=== PATIENT | male | born 1965 | race Two or more races ===

== ENCOUNTER 2020-09-16 11:53 | Emergency (ER) | payer MEDICAID, OTHER ==
[~2020-09-16] VITALS: Ht 170.2 cm; Wt 90.7 kg
[2020-09-16] MEDS ORDERED: SODIUM CHLORIDE 0.9% 1,000 ML IV ONE ×2 (12:00→14:30)
[2020-09-16 12:43] LABS: Albumin 4.2 g/dL (3.4-5.0); Anion Gap 11 (5-15); Blood Alcohol < 3.0 mg/dL (0-5); Blood Urea Nitrogen 7 mg/dL (7-18); Calcium 8.9 mg/dL (8.5-10.1); Carbon Dioxide 27 mmol/L (21-32); Chloride 95 mmol/L (98-107); Glucose 202 mg/dL (74-106); Potassium 3.7 mmol/L (3.5-5.1); Sodium 133 mmol/L (136-145)
[2020-09-16 12:46] LABS: Alanine Aminotransferase 87 U/L (16-61); Alkaline Phosphatase 123 U/L (45-117); Aspartate Aminotransferase 89 U/L (15-37); BUN/Creatinine Ratio 7.5; GFR African American 109 mL/min; GFR Non-African American 90 mL/min; Total Protein 7.7 g/dL (6.4-8.2)
[2020-09-16 12:56] LABS: Basophils # (auto) 0 10 ^3/uL (0-0.2); Basophils % (auto) 0.3 % (0.0-2.0); Eosinophils # (auto) 0 10 ^3/uL (0-0.8); Hematocrit 47.6 % (41.0-53.0); Hemoglobin 16.9 g/dL (13.5-17.5); Lymphocytes # (auto) 0.8 10 ^3/uL (0.4-5.4); Lymphocytes % (auto) 11.5 % (10.0-50.0); Mean Corpuscular Hemoglobin 32.9 pg (28.0-32.0); Mean Corpuscular Hgb Conc. 35.4 g/dL (32.0-36.0); Monocytes # (auto) 0.3 10 ^3/uL (0-1.3); Monocytes % (auto) 4.4 % (0.0-12.0); Neutrophils # (auto) 5.6 10 ^3/uL (1.6-8.6); Neutrophils % (auto) 83.8 % (37.0-80.0); Nucleated Red Blood Cells % 0.2 %; Red Blood Cells 5.12 10^6/uL (4.5-5.90); Red Cell Distribution Width 14.4 % (11.8-14.3); White Blood Cell 6.7 10^3/uL (4.4-10.8)
[2020-09-16 13:40] LABS: Urine WBC None Seen /hpf (0 - 3)
[2020-09-16 13:53] LABS: Urine Bacteria NONE SEEN /hpf (None Seen); Urine Blood Negative /uL (Negative); Urine Hyaline Cast MOD /lpf (0 - 2); Urine Mucus FEW (None Seen); Urine Specific Gravity 1.017 (1.001-1.035)
[2020-09-16 15:18] VITALS: BP 132/82
== END 2020-09-16 15:20 | disposition home or self-care (01) ==
LOC: ER 11:53 → EDBD 11:53 → ER 15:20
DX: E86.0 Dehydration (principal); E11.65 Type 2 diabetes mellitus with hyperglycemia; E78.5 Hyperlipidemia, unspecified; I10 Essential (primary) hypertension; F17.210 Nicotine dependence, cigarettes, uncomplicated; F10.10 Alcohol abuse, uncomplicated; Z86.73 Personal history of transient ischemic attack (TIA), and cerebral infarction without residual deficits
CPT/HCPCS: 36415; 80053; 80320; 81001; 85025; 93005; 96360; 96361; 99285; J7030

== ENCOUNTER 2024-12-18 17:52 | Emergency (ER) | payer BC, OTHER ==
[~2024-12-18] VITALS: Ht 172.7 cm; Wt 107.8 kg
--- NOTE | 2024-12-18 17:58 | ED.PDOC ---
HPI (NEURO) HPI Comments HPI: This is a 59 year of male presenting to the ED with chief complaint of dizziness. Patient reports that he had gotten home from work today and after taking a nap, he woke up with dizziness and associated generalized weakness, sudden sharp left chest pain, left arm/leg numbness, and sweats. Patient relays that when he went to sit down, his chest pain, numbness, and sweats resolved, however, his family was worried about the patient possibly having a stroke, calling 911. 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 Patient denies any SOB, headache, N/V, syncope, fall, injury, or facial droop. Per EMS, no focal neurological deficits appreciated on their exam. Initial Vitals BP: 156/73 HR: 68 RR: 15 O2 Sat: 98% Temp: 98.4F Past Medical history: CVA, HTN, HLD, DM Past Surgical history: Denies Medications: Amlodipine, Glipizide Social History: Denies smoking, ETOH, and drug use. Allergies: Penicillins HPI: Poor Historian. REVIEW OF SYSTEMS: CONSTITUTIONAL: Denies acute: fever, diaphoresis, chills, HEAD: Denies acute: headache, photophobia Eyes: Denies acute: Double vision, vision loss, eye pain, eye discharge. EARS: Denies acute: tinnitus, hearing loss, ear discharge, ear pain, THROAT: Denies acute: sore throat, swelling, difficulty swallowing , pain with s wallowing, change in voice. NECK: Denies acute: neck pain, neck swelling, stiff neck. HEART: Denies acute : palpitations, LUNGS: Denies acute: SOB, wheezing, cough, hemoptysis ABDOMEN: Denies acute: abdominal pain, Nausea, Vomiting, diarrhea, melena , hematemesis, hematochezia SKIN: Denies acute: rash, redness, lesions, itchiness. EXTREMITIES: Denies acute: calf pain, numbness, tingling, weakness, denies pain in extremity. Denies acute: Low back pain. Neuro: Denies acute: focal neurological deficit, motor or sensory focal neurological deficit, tremors, seizure like activity, confusion, change in mental status, loss of bowel or bladder function, cauda equina like symptoms. : Denies acute: dysuria, hematuria, flank pain, increase in urinary frequency. PSYCH: Denies acute: hallucination, suicidal ideation, homicidal ideation. PHYSICAL EXAM: General: ---no-----acute distress, awake and alert. Head: normocephalic, atraumatic. Neck: supple, trachea is midline, no swelling. Throat: Normal phonation. Eyes:, no erythema, no purulent discharge, no proptosis, no icterus. Heart: regular rate, regular rhythm, no significant murmur appreciated. Lungs: no apparent respiratory distress, Able to speak in full sentences. No wheezing, no rhonchi, no crackles. No stridors Clear to auscultation bilaterally. Abdomen: non tender to palpation, non distended, soft, no guarding, no rebound, + bowel sounds. Neuro: Awake, Alert, oriented to name, self, situation, follows commands GCS=15. Speech is normal. Skin: no petechia, no purpura, no cyanosis, non-pale, not jaundice. Lower extremities: --no - Pitting edema no deformity, no focal swelling, no calf TTP. Makes eye contact. moves all four extremities. Face: no apparent facial droop. Ambulating in the ED independently. No nuchal rigidity, Kernig's sign, Brudzinski's sign, no meningeal signs. ED COURSE: DISCLAIMER: This medical document was created using an electronic medical record system with voice recognition software and computerized dictation system. Although this document has been carefully reviewed, there might still be some phonetic and typographical errors. Occasional wrong-word or "sound-alike" substitutions may have occurred due to the inherent limitations of voice recognition software. These areas are purely typographical due to imperfections of the software programs and do not reflect any compromise in the patient's medical care. Please read the chart carefully and recognize, using context, where these substitutions have occurred. Time Seen by MD: 17:54 Reviewed Notes: Medications, Allergies Information Source: Patient, Emergency Med Personnel Mode of Arrival: EMS Was a procedure done? Was a procedure done?: No Differential Diagnosis (SZ) General Weakness: Other (Includes but not limited to thyroid disease, encephalopathy, electrolyte abnormality, sepsis, infection, intracranial pathology, drug adverse effects, arrhythmia, kidney insufficiency, ACS, CVA, malignancy, anemia) Headache: N/A (Rhabdomyolysis, heat exhaustion, ) X-Ray, Labs, Meds, VS Vital Signs Date Time Temp Pulse Resp B/P (MAP) Pulse Ox O2 Delivery O2 Flow Rate FiO2 12/18/24 21:30 97.9 76 18 149/70 (96) 96 97.9 12/18/24 21:20 Room Air* 0 21 12/18/24 18:04 98.4 68 15 156/73 (100) 98 98.4 Lab Test 12/18/24 19:49 12/18/24 19:15 12/18/24 18:30 Range/Units Urine Color Yellow Yellow Urine Clarity Clear Clear Urine pH 6.0 5.0-9.0 Urine Specific [place] 1.016 1.001-1.035 Urine Protein Negative Negative Urine Ketones Negative Negative Urine Blood Negative Negative /uL Urine Nitrite Negative Negative Urine Bilirubin Negative Negative Urine Urobilinogen Normal Negative mg/dL Urine Leukocyte Esterase Negative Negative /uL Urine RBC 1 0 - 3 /hpf Urine Microscopic WBC 1 0-3 /HPF Urine Squamous Epithelial Cells Few <5 /hpf Urine Bacteria None seen None Seen /hpf Urine Glucose Normal Normal mg/dL Troponin I High Sensitivity 6 7 </=54 ng/L White Blood Count 7.9 4.4-10.8 10^3/uL Red Blood Count 5.55 4.5-5.90 10^6/uL Hemoglobin 17.1 13.5-17.5 g/dL Hematocrit 49.9 41.0-53.0 % Mean Corpuscular Volume 89.9 80.0-100.0 fL Mean Corpuscular Hemoglobin 30.8 28.0-32.0 pg Mean Corpuscular Hemoglobin Concent 34.3 32.0-36.0 g/dL Red Cell Distribution Width 14.2 11.8-14.3 % Platelet Count 134 L 140-450 10^3/uL Mean Platelet Volume 9.5 6.9-10.8 fL Neutrophils (%) (Auto) 69.1 37.0-80.0 % Lymphocytes (%) (Auto) 22.4 10.0-50.0 % Monocytes (%) (Auto) 5.7 0.0-12.0 % Eosinophils (%) (Auto) 1.9 0.0-7.0 % Basophils (%) (Auto) 0.9 0.0-2.0 % Neutrophils # (Auto) 5.4 1.6-8.6 10 ^3/uL Lymphocytes # (Auto) 1.8 0.4-5.4 10 ^3/uL Monocytes # (Auto) 0.5 0-1.3 10 ^3/uL Eosinophils # (Auto) 0.2 0-0.8 10 ^3/uL Basophils # (Auto) 0.1 0-0.2 10 ^3/uL Nucleated Red Blood Cells 0.2 % Sodium Level 141 136-145 mmol/L Potassium Level 3.8 3.5-5.1 mmol/L Chloride Level 105 98-107 mmol/L Carbon Dioxide Level 28 20-31 mmol/L Anion Gap 8 5-15 Blood Urea Nitrogen 7 L 9-23 mg/dL Creatinine 0.82 0.700-1.30 mg/dL Glomerular Filtration Rate Calc 102 >90 mL/min BUN/Creatinine Ratio 8.5 L 10.0-20.0 Serum Glucose 135 H 74-106 mg/dL Lactic Acid Level 1.1 0.4-2.0 mmol/L Calcium Level 9.5 8.7-10.4 mg/dL Total Bilirubin 0.7 0.2-1.0 mg/dL Aspartate Amino Transferase (AST) 36 H <34 U/L Alanine Aminotransferase (ALT) 49 H 7-40 U/L Alkaline Phosphatase 131 H 46-116 U/L Creatine Kinase 74 46-171 U/L Total Protein 7.3 5.7-8.2 g/dL Albumin 4.9 H 3.2-4.8 g/dL Current Medications Medications (Trade) Dose Ordered Sig/Yehuda Route Start Time Stop Time Status Last Admin Sodium Chloride 1,000 ml @ 1,000 mls/hr Q1H ONCE IV 12/18/24 18:00 12/18/24 18:59 DC 12/18/24 20:30 Time of 1ST Reevaluation: 18:54 Reevaluation 1ST: Unchanged Time of 2ND Reevaluation: 20:59 Reevaluation 2ND: Improved Patient Education/Counseling: Diagnosis, Treatment Family Education/Counseling: No Family Present Comments Patient presented with the above HPI.---heat exhaustion/dizziness---workup was initiated. patient was found with the above mentioned diagnosis. the following medications were ordered: please refer to order lists of meds and tests obtained by myself Dr. Cho. Patient ED course and VS have been stabilized. Patient has been reassessed in the ED and remained in a stable condition. Pertinent incidental findings were discussed with the patient and/or family. Patient/family voices understanding and is agreeable with plan. Patient has been observed in the ED adequate length of time to insure improvement/stability. Escalation of care considered: Consideration of escalation to observation or admission Symptoms have resolved after simple fluid hydration. Patient is back to his baseline. His family is with him. Workup has been unremarkable. Patient was DISCHARGED home in a stable condition. All the reports of any imaging studies that were ordered by myself were reviewed by myself. Departure 1 Departure Time of Disposition: 20:56 Impression: Primary Impression: Heat exhaustion Disposition: 01 HOME / SELF CARE / HOMELESS Condition: Stable Additional Instructions: Additional instructions: You MUST follow-up with your primary care/family doctor in 1 to 2 days. If you are unable to see your primary care/family doctor, please return to our emergency room for re-assessment and re-evaluation in 1 to 2 days. Return to the emergency room here in our facility or to the nearest ER [facility] if your symptoms change or worsen. CONSULTATIONS: you MUST Follow-up for consultation as soon as possible with: -cardiology and neurology in 1-2 days. Please call for appointment. You MUST call the consultants office yourself to make an appointment. You may need to arrange that through your insurance and/or your primary/family doctor. If you are unable to see the mgmt consultant in 1 to 2 days, you must return to our emergency room (or any other ER of your choice) for re-assessment and re- evaluation. Adequate fluid hydration. Avoid excessive heat exposure. Discharged With: Self, Relative Critical Care Note Critical Care Time?: No I personally scribed for GORDON CHO DO ([email or web address]) on 12/18/24 at 17:58. Electronically submitted by Quoc Verduzco ([email or web address]). I personally scribed for GORDON CHO DO ([email or web address]) on 12/18/24 at 18:33. Electronically submitted by Quoc Verduzco ([email or web address]). GORDON CHO DO Dec 18, 2024 17:58
--- NOTE | 2024-12-18 18:45 | DVH ---
CHEST RADIOGRAPH Indication: dizzy, Technique: Single frontal view of the chest was obtained Comparison: None FINDINGS: Lines and Tubes: None Lungs: No focal consolidation. Pleura: No effusion. No pneumothorax. Cardiomediastinal contours: Unremarkable Bones: No acute osseous abnormality. IMPRESSION: 1. No acute cardiopulmonary disease. HS:Y
[2024-12-18 18:59] LABS: Basophils # (auto) 0.1 10 ^3/uL (0-0.2); Basophils % (auto) 0.9 % (0.0-2.0); Eosinophils # (auto) 0.2 10 ^3/uL (0-0.8); Eosinophils % (auto) 1.9 % (0.0-7.0); Hematocrit 49.9 % (41.0-53.0); Hemoglobin 17.1 g/dL (13.5-17.5); Lymphocytes # (auto) 1.8 10 ^3/uL (0.4-5.4); Lymphocytes % (auto) 22.4 % (10.0-50.0); Mean Corpuscular Hemoglobin 30.8 pg (28.0-32.0); Mean Corpuscular Hgb Conc. 34.3 g/dL (32.0-36.0); Mean Corpuscular Volume 89.9 fL (80.0-100.0); Monocytes # (auto) 0.5 10 ^3/uL (0-1.3); Monocytes % (auto) 5.7 % (0.0-12.0); Neutrophils # (auto) 5.4 10 ^3/uL (1.6-8.6); Neutrophils % (auto) 69.1 % (37.0-80.0); Nucleated Red Blood Cells % 0.2 %; Platelet Count (auto) 134 10^3/uL (140-450); Red Blood Cells 5.55 10^6/uL (4.5-5.90); Red Cell Distribution Width 14.2 % (11.8-14.3); White Blood Cell 7.9 10^3/uL (4.4-10.8)
[2024-12-18 19:09] LABS: Calcium 9.5 mg/dL (8.7-10.4); Carbon Dioxide 28 mmol/L (20-31); Chloride 105 mmol/L (98-107)
[2024-12-18 19:10] LABS: Anion Gap 8 (5-15); BUN/Creatinine Ratio 8.5 (10.0-20.0); Bilirubin, Total 0.7 mg/dL (0.2-1.0); Creatine Kinase IFCC 74 U/L (46-171); Potassium 3.8 mmol/L (3.5-5.1); Sodium 141 mmol/L (136-145); Total Protein 7.3 g/dL (5.7-8.2)
[2024-12-18 19:15] LABS: Alanine Aminotransferase 49 U/L (7-40); Albumin 4.9 g/dL (3.2-4.8); Alkaline Phosphatase 131 U/L (46-116); Aspartate Aminotransferase 36 U/L (<34); Blood Urea Nitrogen 7 mg/dL (9-23); Glucose 135 mg/dL (74-106)
[2024-12-18 20:05] LABS: Urine Bacteria None Seen /hpf (None Seen)
[2024-12-18] MEDS: SODIUM CHLORIDE 0.9% 1,000 ML IV ONE ×2 (20:30→21:26)
[2024-12-18 20:51] LABS: Urine Blood Negative /uL (Negative); Urine Clarity Clear (Clear); Urine Color Yellow (Yellow); Urine Protein, UAD Negative (Negative); Urine Specific Gravity 1.016 (1.001-1.035); Urine Squamous Epithelial Cell FEW /hpf (<5); Urine Urobilinogen Normal (Negative); Urine WBC 1 /HPF (0-3)
[2024-12-18 21:30] VITALS: BP 149/70; PULSE 76; RESP 18; TEMP 97.9; O2SAT 96
== END 2024-12-18 21:40 | disposition home or self-care (01) ==
LOC: EDBD 17:52 → ER 18:00 → MERGE 18:00 → ER 21:40
DX: T67.5XXA Heat exhaustion, unspecified, initial encounter (principal); I10 Essential (primary) hypertension; E11.9 Type 2 diabetes mellitus without complications; E78.5 Hyperlipidemia, unspecified; Z88.0 Allergy status to penicillin; Z86.73 Personal history of transient ischemic attack (TIA), and cerebral infarction without residual deficits; X58.XXXA Exposure to other specified factors, initial encounter; Y93.89 Activity, other specified; Y92.89 Other specified places as the place of occurrence of the external cause; Y99.8 Other external cause status
CPT/HCPCS: 36415; 71045; 80053; 81001; 82550; 83605; 84484; 85025; 96360; 99284; J7030